=== PATIENT | female | born 1985 | race Caucasian/White ===

== ENCOUNTER 2023-02-01 05:30 | Day surgery (SDC) | payer OTHER ==
[~2023-02-01] VITALS: Ht 157.5 cm; Wt 52.2 kg
== END 2023-02-01 22:10 | disposition home or self-care (01) ==
LOC: CIR.AMB 05:30
PROVIDERS: ATTEND Obstetrics & Gynecology
DX: N93.8 Other specified abnormal uterine and vaginal bleeding (principal); Z88.8 Allergy status to other drugs, medicaments and biological substances